=== PATIENT | male | born 1985 | race Caucasian/White ===

== ENCOUNTER 2022-01-15 16:54 | Emergency (ER) | payer MEDICAID ==
[~2022-01-15] VITALS: Ht 167.6 cm; Wt 81.8 kg
[2022-01-15 17:21] VITALS: BP 133/69
== END 2022-01-15 18:40 | disposition home or self-care (01) ==
LOC: ER 16:55
DX: M25.511 Pain in right shoulder (principal); V98.8XXA Other specified transport accidents, initial encounter; Y93.89 Activity, other specified; Y92.89 Other specified places as the place of occurrence of the external cause; Y99.8 Other external cause status
CPT/HCPCS: 73030; 99283; A4565